=== PATIENT | male | born 1995 | race Caucasian/White ===

== ENCOUNTER 2021-02-20 22:24 | Emergency (ER) | payer BC ==
[~2021-02-20] VITALS: Ht 167.6 cm; Wt 65.8 kg
[2021-02-20] MEDS ORDERED: DEXAMETHASONE SOD PHOSPHATE 10 MG/ML VIAL ONE (22:38)
[2021-02-20] MEDS: DEXAMETHASONE SOD PHOSPHATE 4 MG/ML VIAL IM ONE (22:44)
[2021-02-20] MEDS ORDERED: MOME17SP BNOSTRILS (23:33)
--- NOTE | 2021-02-20 23:37 | NUR ---
PT REPORTED FEELING BETTER. REQUESTING AN RX FOR NASAL SPRAY FO NASAL CONGESTION. NO SOB. Patient discharged to home in stable condition. Rx and Written and verbal after care instructions given. Patient verbalizes understanding of instruction.
[2021-02-21 00:38] VITALS: BP 130/81
== END 2021-02-20 23:37 | disposition home or self-care (01) ==
LOC: ER 22:24
DX: T78.40XA Allergy, unspecified, initial encounter (principal); I10 Essential (primary) hypertension; X58.XXXA Exposure to other specified factors, initial encounter
CPT/HCPCS: 96372; 99283; J1100